=== PATIENT | female | born 1940 | race Caucasian/White ===

== ENCOUNTER 2020-03-06 08:00 | Outpatient (CLI) | payer MEDICARE, OTHER | END 2020-03-06 23:59 | disposition home or self-care (01) | LOC: LAB.R 08:00 | PROVIDERS: ATTEND Family Medicine | DX: Z01.818 Encounter for other preprocedural examination (principal) | CPT/HCPCS: 87640 ==

== ENCOUNTER 2020-04-06 11:03 | Inpatient (IN) | payer MEDICARE, OTHER ==
[2020-04-06] MEDS ORDERED: KETOROLAC 30 MG/ML VIAL IVP STA (11:31)
--- NOTE | 2020-04-06 12:17 | XRAY Report ---
PROCEDURE: Shoulder 3 View RT INDICATIONS: fall posterior shoulder pain TECHNIQUE: 3 views of the shoulder were acquired. COMPARISON: None. 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 Defo rmity involving mid scapular body is seen suggestive of a comminuted scapular body fracture. No suspi cious bony lesions. Visualized ribs appear intact. Soft tissues: No suspicious soft tissue calcifications. IMPRESSION: Comminuted mid scapular body fracture with dorsal and lateral angulation and displacemen t at fracture site. Reviewed by: Ede Cabello MD on 04/06/2020 11:16 AM ALIDA Approved by: Ede Cabello MD on 04/06/2020 11:16 AM ALIDA Station ID: [id number]
--- NOTE | 2020-04-06 12:22 | XRAY Report ---
PROCEDURE: Ribs w/PA Chest LT INDICATIONS: fall left rib pain laterally TECHNIQUE: 2 views of the left ribs were acquired, along with a single view chest. COMPARISON: None FINDINGS: Surgical changes and devices: Prior left shoulder arthroplasty is seen. Bones and chest wall: There is subtle cortical irregularity involving left posterior 10th rib concern ing for minimally displaced rib fracture. No suspicious bony lesions. Overlying soft tissues appear unremarkable. Lungs and pleura: No significant pleural effusions or pneumothorax. Left basilar atelectasis is seen concerning for contusion. Mediastinum: Mediastinal contours appear normal. Heart size is normal. IMPRESSION: 1. Suggestion of minimally displaced left posterior 10th rib fracture. 2. Left basilar atelectasis/contusion. No significant pleural effusion or pneumothorax. Reviewed by: Ede Cabello MD on 04/06/2020 11:20 AM ALIDA Approved by: Ede Cabello MD on 04/06/2020 11:20 AM ALIDA Station ID: [id number]
[2020-04-06] MEDS ORDERED: IOVERSOL 320 100 ML VIAL IVP ONE ×2 (12:57→18:56)
[2020-04-06 13:29] LABS: BASOPHILS # (AUTO) 0.1 10^3/uL (0.0-0.1); BASOPHILS % (AUTO) 0.5 %; EOSINOPHILS % (AUTO) 0.2 %; HGB - HEMOGLOBIN 11.3 g/dL (12.0-16.0); LYMPHOCYTES # (AUTO) 1.3 10^3/uL (1.5-3.5); LYMPHOCYTES % (AUTO) 6.8 %; MEAN CORPUSCULAR HEMOGLOBIN 30.4 pg (27.0-31.0); MEAN CORPUSCULAR HGB CONC 33.7 g/dL (32.0-36.0); MEAN CORPUSCULAR VOLUME 90.1 fL (81.0-99.0); MEAN PLATELET VOLUME 7.9 fL (7.9-10.8); MONOCYTES # (AUTO) 1.4 10^3/uL (0.0-1.0); MONOCYTES % (AUTO) 7.4 %; NEUTROPHILS # (AUTO) 15.8 10^3/uL (1.5-6.6); NEUTROPHILS % (AUTO) 84.2 %; PLT - PLATELET COUNT 357 10^3/uL (130-450); RED BLOOD COUNT 3.72 10^6/uL (4.20-5.40); RED CELL DISTRIBUTION WIDTH 14.5 % (12.0-15.0); WHITE BLOOD COUNT 18.7 x10^3/uL (4.8-10.8)
[2020-04-06 13:44] LABS: ALBUMIN 3.7 g/dL (3.2-5.5); ALBUMIN/GLOBULIN RATIO 1.2 (1.0-2.2); BILIRUBIN,TOTAL 0.2 mg/dL (0.2-1.0); CALCIUM 9.8 mg/dL (8.5-10.3); CREATININE 0.8 mg/dL (0.4-1.0); TOTAL PROTEIN 6.8 g/dL (6.7-8.2)
--- NOTE | 2020-04-06 15:11 | ED Physician Documentation ---
PD HPI Fall - Stated complaint Stated Complaint: FALL DOWN STAIRS - Chief complaint Chief Complaint: Ext Problem - History obtained from History obtained from: Patient, Family - History of Present Illness Mechanism of injury: Tripped Fall distance: Standing position Where injury occurred: Home Timing - onset: Today Injury(ies) location: Chest, Right Upper Extremity Quality of pain: Pain, Throbbing Associated symptoms: Dyspnea, Other ("knocked the wind out"). No: LOC, AMS, Amnesia Symptoms improve with: Rest Worsens with: Movement, Palpation Contributing factors: No: Anticoagulated Similar symptoms before: Has not had sx before Recently seen: Surgery - Additional information Additional information: 80-year-old female has had a left shoulder replacement done 2 weeks ago. Today she was out in her garden feeling much improved and walking she walked down a set of steps in her yard and fell forward and rolled into a wall. She knocked the wind out of herself and has significant pain in her right shoulder. She has some pain in her left chest as well. She denies any loss of consciousness with the fall she denies any pain in her neck or back. She states she did not injure her left shoulder which was recently operated on. Review of Systems Constitutional: denies: Fever Eyes: denies: Decreased vision Ears: denies: Ear pain Nose: denies: Congestion Throat: denies: Sore throat Cardiac: reports: Chest pain / pressure. denies: Palpitations, Pedal edema, Calf pain Respiratory: reports: Dyspnea. denies: Cough GI: denies: Abdominal Pain, Nausea, Vomiting, Constipation, Diarrhea : denies: Dysuria, Frequency Skin: denies: Rash Musculoskeletal: reports: Extremity pain, Joint pain. denies: Neck pain, Back pain Neurologic: denies: Generalized weakness, Focal weakness, Numbness PD PAST MEDICAL HISTORY - Allergies Allergies/Adverse Reactions: Allergies Allergy/AdvReac Type Severity Reaction Status Date / Time No Known Drug Allergies Allergy Verified 04/06/20 11:14 - Social History Does the pt smoke?: No Smoking Status: Never smoker Does the pt drink ETOH?: No Does the pt have substance abuse?: No - Immunizations Immunizations are current?: Yes PD ED PE NORMAL - Vitals Vital signs reviewed: Yes (hypertensive ) - General General: Alert and oriented X 3, Well developed/nourished, Other (The patient appears pale and appears to be 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 On the right side posteriorly there is a fracture deformity to the right scapula w tenderness and protrusion of tip of the body laterally and posteriorly. She is able to move the shoulder in ROM ) - Abdomen Abdomen: Normal bowel sounds, Soft, Non tender, Non distended, No organomegaly - Back Back: No CVA TTP, No spinal TTP - Derm Derm: Normal color, Warm and dry, No rash - Extremities Extremities: Other (There is deformity to the right scapula it is presenting off of the body. There is point tenderness specifically to the area I am not pressing hard enough to cause crepitance. The distal neurovascular components to the right upper extremities are intact she is able to move the shoulder and some ra) - Neuro Neuro: Alert and oriented X 3, crew team member 2-12 intact, No motor deficit, No sensory deficit, Normal speech Eye Opening: Spontaneous Motor: Obeys Commands Verbal: Oriented GCS Score: 15 - Psych Psych: Normal mood Results - Vitals Vitals: Vital Signs - 24 hr 04/06/20 04/06/20 04/06/20 11:15 13:18 15:18 Temperature 36.7 C Heart Rate 72 84 86 Respiratory 16 Rate Blood Pressure 185/74 H 152/79 H 177/59 H O2 Saturation 100 99 99 04/06/20 17:06 Temperature Heart Rate 90 Respiratory 20 Rate Blood Pressure 166/89 H O2 Saturation 99 Oxygen O2 Source Room air - Labs Labs: Laboratory Tests 04/06/20 04/06/20 13:25 13:25 WBC 18.7 H RBC 3.72 L Hgb 11.3 L Hct 33.5 L MCV 90.1 MCH 30.4 MCHC 33.7 RDW 14.5 Plt Count 357 MPV 7.9 Neut # (Auto) 15.8 H Lymph # (Auto) 1.3 L [place] # (Auto) 1.4 H Eos # (Auto) 0.0 Baso # (Auto) 0.1 Absolute Nucleated RBC 0.00 Nucleated RBC % 0.0 Sodium 129 L Potassium 4.2 Chloride 90 L Carbon Dioxide 28 Anion Gap 11.0 BUN 12 Creatinine 0.8 Estimated GFR (MDRD) 69 L Glucose 109 H Calcium 9.8 Total Bilirubin 0.2 AST 43 H ALT 19 Alkaline Phosphatase 65 Total Protein 6.8 Albumin 3.7 Globulin 3.1 Albumin/Globulin Ratio 1.2 Lipase 43 - Rads (name of study) shoulder Radiology: Prelim report reviewed (Impression: Comminuted mid scapular body fracture with dorsal and lateral angulation and displacement at fracture site.), EMP read indepedently, See rad report Ribs with PA chest Radiology: Prelim report reviewed (Impression: 1. Suggestion of minimally displaced left posterior 10th rib fracture. Left basilar atelectasis/contusion. No significant pleural effusion or pneumothorax.), EMP read indepedently, See rad report CT chest with Radiology: Prelim report reviewed (Impression: 1. Minimally displaced left lateral 10th and 11th rib fractures, without evidence of subcutaneous emphysema or left-sided pneumothorax. Pulmonary contusion at the left lung base, however, does appear present with a small associated left pleural effusion. Hemothorax is not seen.), Final report received (3. Significant traumatic injury to the right clavicle has occurred were a moderately comminuted set the fracture planes involve much of the scapular body extending inferior to the scapular tip. There is a rotated bone fragment below the junction of the middle and inferior thirds of the scapular fr), EMP read indepedently (Below the junction of the middle and inferior thirds of the scapular fracture fractures in the interspace between the inferior scapula and the outer margin of the chest wall. Best seen on CT series 3, image 7 rotated approximately 90 degrees from anatomic alignment.), EMP read contemporaneously (2. No sign of mediastinal vascular injury. No evidence of active extravasation of contrast during the course of the study. No spine fracture found.) scapula R Radiology: Prelim report reviewed (: Comminuted fracture of the right scapular spine and body, as above.), EMP read indepedently, See rad report PD MEDICAL DECISION MAKING - ED course Complexity details: reviewed old records, reviewed results, re-evaluated patient, considered differential, d/w patient, d/w family ED course: 80-year-old female with a ground-level fall at her home is knocked the wind out of her self she is has 2 cracked ribs on the left side and a pulmonary contusion as well as a fractured right scapula. She has good pain control with use of Toradol administered intravenously. She has deformity associated with the significant angulated comminuted right scapular fracture. We did discuss hospitalization for pain control the patient felt she may be able to make it at home but after a prolonged discussion was advised she stay.The case was reviewed with Dr. Gaspar's who graciously agrees to care for the patient in the hospital. Her scapular fracture was reviewed with her shoulder surgeon Dr. Segundo Coley at [facility] [phone]. He has recommended conservative treatment, a CT of the scapula and follow up with him in 3 days. Departure - Departure Disposition: [facility] DC/Xfer Clinical Impression: Multiple rib fractures Qualifiers: Encounter type: initial encounter Fracture type: closed Laterality: left Qualified Code(s): S22.42XA - Multiple fractures of ribs, left side, initial encounter for closed fracture Left pulmonary contusion Qualifiers: Encounter type: initial encounter Qualified Code(s): S27.321A - Contusion of lung, unilateral, initial encounter Closed right scapular fracture Qualifiers: Encounter type: initial encounter Scapula location: body Fracture alignment: displaced Qualified Code(s): S42.111A - Displaced fracture of body of scapula, right shoulder, initial encounter for closed fracture Condition: Serious
--- NOTE | 2020-04-06 15:14 | CT Report ---
PROCEDURE: CHEST W INDICATIONS: chest trauma CONTRAST: IV CONTRAST: Optiray 320 ml: 100 PO CONTRAST: *NO PO CONTRAST TECHNIQUE: After the administration of intravenous contrast, 5 mm thick sections acquired from the pulmonary api dom to the posterior costophrenic angles. 7 mm thick coronal MIP reformats were acquired. For radia tion dose reduction, the following was used: automated exposure control, adjustment of mA and/or kV according to patient size. COMPARISON: Prior chest plain film study from same day reviewed. This includes rib plain films targe latosha to the left lower ribs.. FINDINGS: Image quality: Excellent. Lungs and pleura: No acute air space opacities found on the right but there is what appears to be a pulmonary contusion with a small pleural effusion on the left, associated with targeted imaging for r ib fractures obtained earlier same day. There are nondisplaced lateral 10th and 11th rib fractures wi thout subcutaneous emphysema or left-sided pneumothorax in this patient, and more superiorly no rib f ractures are seen. A prior left humeral head arthroplasty has been performed. Central and peripheral airways are patent and normal in caliber. Mediastinum: Heart size is normal. No pericardial effusion. No mediastinal or hilar adenopathy by size criteria. Thoracic aorta and central pulmonary arteries are normal in size. Esophagus is neil l in caliber. No hiatal hernia. Bones and chest wall: No suspicious bony lesions that would suggest presence of infection or neoplas m. No vertebral body compression fractures. The left lateral 10th and 11th rib rotating a inferior scapular body fragment towards the outer rib margins. There is swelling within the subscapular muscle and body wall, but no evidence of active extravasation of contrast during imaging through this area. No axillary or supraclavicular adenopathy by size criteria. Thyroid gland appears normal where well visualized.. Abdomen: Visualized upper abdominal solid organs appear normal. Upper abdominal bowel loops are nor mal in caliber. IMPRESSION: 1. Minimally displaced left lateral 10th and 11th rib fractures, without evidence of subcutaneous emp hysema or left-sided pneumothorax. Pulmonary contusion at the left lung base, however, does appear pr esent with a small associated left pleural effusion. Hemothorax is not seen. 2. No sign of mediastinal vascular injury. No evidence of active extravasation of contrast during the course of this study. No spine fracture found. 3. Significant traumatic injury to the right clavicle has occurred where a moderately comminuted set of fracture planes involve much of the scapular body extending inferior to the scapular tip. There is a rotated bone fragment below the junction of the middle and inferior thirds of the scapular fractur es in the interspace between the inferior scapula and the outer margin of the chest wall. This is bes t seen on CT series 3, image 7, rotated approximately 90 degrees from anatomic alignment. Reviewed by: Baljit Brantley MD on 04/06/2020 3:13 PM PDT Approved by: Baljit Brantley MD on 04/06/2020 3:13 PM PDT Station ID: [id number]
--- NOTE | 2020-04-06 16:13 | CT Report ---
PROCEDURE: UPPER EXTREMITY WO - RT INDICATIONS: right scapular fracture TECHNIQUE: Noncontrast 3 mm axial sections acquired of the right scapula, with coronal and sagittal reformats. COMPARISON: Shoulder x-ray and CT chest 04/06/2020. FINDINGS: Image quality: Excellent. Bones: There is a comminuted fracture with mild displacement of fracture fragments within multiple p ortions of the scapular spine and body. Lateral portions, including the glenohumeral joint as well as the coracoid and acromion are intact. Soft tissues: Minimal appearance of hematomas noted at fracture site. IMPRESSION: Comminuted fracture of the right scapular spine and body, as above. Reviewed by: Yulissa Barbour MD on 04/06/2020 4:12 PM PDT Approved by: Yulissa Barbour MD on 04/06/2020 4:12 PM PDT Station ID: [id number]
--- NOTE | 2020-04-06 17:47 | SURGERY HX AND PHYSICAL(T) ---
Surgical History & Physical - Chief Complaint/HPI Chief Complaint: Fall with rib fractures and scapular fracture History of Present Illness: 80-year-old female status post fall with no loss of consciousness who is most notable for had a left shoulder replacement 2 weeks ago. She reportedly was out in her garden feeling much improved and while walking down a set of steps in her yard and fell forward and rolled into a wall. Again she denies loss of consciousness but does report that the fall "knocked the wind out of herself" and has since developed significant pain in her right shoulder. She has some pain in her left chest as well. She did not hit her head. Moreover, she denies having injured her left shoulder, which was recently operated on. - PMH/PSH/Social Hx Smoking Status: Never smoker Does the pt drink ETOH?: No Does the pt have substance abuse?: No - Home Meds and Allergies Allergies/Adverse Reactions: Allergies Allergy/AdvReac Type Severity Reaction Status Date / Time No Known Drug Allergies Allergy Verified 04/06/20 11:14 - Review of Systems Constitutional: Weakness. No: Fever, Chills, Malaise HEENT: No: Headaches, Visual changes, Eye pain, Dysphasia, Sore throat Skin: No: Cyanosis, Jaundice Cardiac: No: AFIB, MA, Syncope Respiratory: No: Shortness of breath, Cough Gastrointestinal: No: Nausea, Vomiting, Difficulty swallowing, Abdominal pain Gentinourinary: No: Dysuria Neurological: No: Dizziness, Headache, Numbness, Syncope, Tingling, Weakness Musculoskeletal: No: Muscle pain - Vital Signs Heart Rate: 90 Blood Pressure: 166/89 Temperature: 36.7 C Respiratory Rate: 20 O2 Saturation: 99 Weight (kg): 69.4 kg Height: 1.7 m - Physical Exam General Appearance: positive: No acute distress Eyes Bilatera: positive: Normal inspection, PERRL, EOMI, Conjunctivae nml ENT: positive: ENT inspection nml, Pharynx nml Neck: positive: Nml inspection, Thyroid nml, No JVD, Trachea midline, Other (Cervical spine with no tenderness midline either on left and right lateral rotation or by flexion and extension.) Respiratory: positive: Breath sounds nml, Other (Left chest tender to palpation at expected site of rib fractures. Right posterior chest tenderness at the scapular fracture.). negative: Wheezes, Rales, Rhonchi Cardiovascular: positive: Regular rate & rhythm. negative: Tachycardia, Bradycardia Abdomen: positive: Non-tender, No distention. negative: Tenderness, Guarding, Rebound Skin: positive: Color nml, No rash, Warm, Dry. negative: Cyanosis Extremities: positive: Non-tender, Nml appearance, Other (Well-healed left shoulder scar status post recent operative intervention.) Neurologic/Psychiatric: positive: Oriented x3, CN's nml (2-12), Motor nml, Sensation nml, Mood/affect nml - Patient Review Patient Review: Problems were reviewed with the patient during this visit. Medications were reviewed with the patient during this visit. Allergies were reviewed this patient during this visit. Pertinent Tests Reviewed: All pertitent test for this patient were reviewed. - Assessment & Plan Assessment and Plan: 80-year-old female status post left upper extremity/shoulder operative intervention 2 weeks prior who is status post fall with multiple injuries; fall from standing, no loss of consciousness, no headache, no syncope or presyncope, no other sensorimotor deficits, no C-spine tenderness. Injuries include right scapular fracture as well as left rib fractures. Secondary to the scapula trauma, which historically commands significant force, full appropriate trauma work-up was undertaken to include CT of the chest as well as plain films together with left upper extremity CT scan as well. Patient is without pneumothorax, without hemothorax, mild pulmonary contusion noted. No injury noted to left upper extremity or right upper extremity. Given rib fractures, and significant scapular trauma, together with pain and concern for splinting and associated atelectasis with potential for development of pneumonia, patient is admitted for pain management, chest PT and nebs, and monitoring. Orthopedic consult to be called as well. Plan going forward is as follows: 1. Neurology: With regard to the patient's mechanism and reported symptoms no evidence of any intracranial injury or need for further work-up. Patient with no syncope or presyncope. We will continue with opiate sparing analgesia to include Toradol, IV acetaminophen, narcotics as necessary, as well as adjuncts to include Lyrica and muscle relaxants with antispasmodic/Robaxin. Patient to continue home medications to include Wellbutrin and Depakote. 2. Cardiovascular: No issues, troponin and EKG with no concerning features. 3. Endocrine: Continue Synthroid as historic. No evidence for any necessary sliding scale coverage. 4. Infectious disease: No open wounds or fractures and no indication for antibiotics at this time. 5. Respiratory: Obviously the patient's most concerning system in the setting of rib fractures historic left upper extremity surgery and extensive comminuted right scapular fracture. Continue with pain management, nebulized medications, chest physical therapy amongst others. Repeat chest x-ray in the a.m. as well as supplemental oxygen. 6. GI/nutrition: We will advance diet as tolerated and Hep-Lock IV fluids. GI regimen also recommended for bowel movement. 7. Physical therapy will be ordered and pending evaluation and input from orthopedics when seen by patient. 8. We will need to see patients outpatient orthopedic surgeon Dr. Fitzpatrick, who per emergency staff was made aware of the patient's injury.
[2020-04-06] MEDS ORDERED: ONDANSETRON 4 MG/2 ML VIAL IVP PRN (17:49)
[2020-04-06] MEDS ORDERED: HYDROmorphone 0.5 MG/0.5 ML SYRINGE IVP PRN (17:49)
[2020-04-06] MEDS ORDERED: METOCLOPRAMIDE 10 MG/2 ML VIAL IVP PRN (17:49)
[2020-04-06] MEDS ORDERED: SODIUM CHLORIDE FLUSH 0.9% 10 ML SYRINGE IVP PRN (17:49)
[2020-04-06] MEDS ORDERED: ALBUTEROL NEB 2.5 MG/3 ML INH PRN (17:49)
[2020-04-06] MEDS ORDERED: D5NS W/20 MEQ KCL 1,000 ML IV SCH (18:00)
[2020-04-06] MEDS ORDERED: methocarbamoL 500 MG TABLET PO SCH (18:00)
[2020-04-06] MEDS ORDERED: ACETAMINOPHEN 1,000 MG/100 ML 100 ML IV PRN (19:00)
[2020-04-06 20:19] LABS: BILIRUBIN,URINE NEGATIVE (NEGATIVE); GLUCOSE, URINE (UA) NEGATIVE (NEGATIVE); KETONES,URINE (UA) TRACE mg/dL (NEGATIVE); LEUKOCYTE ESTERASE, URINE NEGATIVE (NEGATIVE); NITRITE,URINE NEGATIVE (NEGATIVE); OCCULT BLOOD,URINE NEGATIVE (NEGATIVE); PROTEIN,URINE NEGATIVE (NEGATIVE); UROBILINOGEN,URINE 0.2 (NORMAL) E.U./dL (NORMAL)
[2020-04-06 20:28] LABS: CLARITY,URINE CLEAR (CLEAR)
[2020-04-06] MEDS: D5NS W/20 MEQ KCL 1,000 ML IV SCH (20:44)
[2020-04-06] MEDS: SODIUM CHLORIDE FLUSH 0.9% 10 ML SYRINGE IVP PRN (20:45)
[2020-04-06] MEDS: IPRATROPIUM 0.2 MG/ML NEB INH SCH (22:13)
[2020-04-06] MEDS: HEPARIN 5,000 UNIT/ML VIAL SUBQ SCH (22:45)
[2020-04-06] MEDS: DIVALPROEX DR 250 MG TABLET PO SCH (23:02)
[2020-04-06] MEDS: buPROPion SR 100 MG TABLET PO SCH (23:02)
[2020-04-07] MEDS: SODIUM CHLORIDE FLUSH 0.9% 10 ML SYRINGE IVP SCH ×6 (00:09→17:09)
[2020-04-07] MEDS: methocarbamoL 500 MG TABLET PO SCH ×4 (03:07→21:29)
[2020-04-07] MEDS: D5NS W/20 MEQ KCL 1,000 ML IV SCH ×2 (06:35→16:21)
[2020-04-07] MEDS: LEVOTHYROXINE 100 MCG TABLET PO SCH (06:36)
[2020-04-07] MEDS: PANTOPRAZOLE 40 MG VIAL IVP SCH (06:36)
[2020-04-07] MEDS: IPRATROPIUM 0.2 MG/ML NEB INH SCH ×4 (07:48→23:27)
[2020-04-07] MEDS ORDERED: DIVALPROEX DR 250 MG TABLET PO SCH (09:00)
[2020-04-07] MEDS ORDERED: buPROPion SR 100 MG TABLET PO SCH ×2 (09:00)
[2020-04-07] MEDS: buPROPion SR 100 MG TABLET PO SCH ×2 (09:46→21:32)
[2020-04-07] MEDS: DIVALPROEX DR 250 MG TABLET PO SCH ×2 (09:46→21:32)
[2020-04-07] MEDS: HEPARIN 5,000 UNIT/ML VIAL SUBQ SCH ×2 (09:52→21:31)
--- NOTE | 2020-04-07 12:23 | XRAY Report ---
PROCEDURE: Chest 1 View X-Ray INDICATIONS: Rib fx follow up, eval for pneumo TECHNIQUE: One view of the chest was acquired. COMPARISON: Chest CT and chest radiograph 04/06/2020. Correlation is also made with right shoulder CT examination 04/06/2020. FINDINGS: Surgical changes and devices: Left shoulder arthroplasty hardware is seen. Lungs and pleura: No pleural effusions or pneumothorax. No focal infiltrates are seen. Minimal in terstitial prominence is seen. Mediastinum: The aorta is prominent and tortuous. The cardiac contours are within normal limits. Bones and chest wall: No suspicious bony lesions. The known left-sided rib fractures are not seen on this study. The known right scapular fracture is poorly seen on this study. Overlying soft tissues a ppear unremarkable. IMPRESSION: No pneumothorax is seen. The known left-sided rib fractures are not seen on this study. The known right-sided scapular fracture is poorly seen on this plain film study. Reviewed by: Santana Merida MD on 04/07/2020 11:22 AM AL[facility] Approved by: Santana Merida MD on 04/07/2020 11:22 AM ALIDA Station ID: [id number]
[2020-04-07] MEDS ORDERED: oxyCODONE 5 MG TABLET PO PRN (13:20)
[2020-04-07] MEDS: KETOROLAC 30 MG/ML VIAL IVP SCH ×2 (15:47→18:52)
[2020-04-07] MEDS ORDERED: methocarbamoL 500 MG TABLET PO SCH (18:00)
[2020-04-07] MEDS: ACETAMINOPHEN 1,000 MG/100 ML 100 ML IV SCH (18:34)
[2020-04-07] MEDS: PREGABALIN 100 MG CAPSULE PO SCH ×2 (21:35→22:24)
--- NOTE | 2020-04-07 21:35 | PROVIDER PROGRESS NOTE ---
Progress Note SUBJECTIVE: 80-year-old female status post fall with no loss of consciousness who is most notable for had a left shoulder replacement 2 weeks ago. She reportedly was out in her garden feeling much improved and while walking down a set of steps in her yard and fell forward and rolled into a wall. Again she denies loss of consciousness but does report that the fall "knocked the wind out of herself" and has since developed significant pain in her right shoulder. She has some pain in her left chest as well. She did not hit her head. Moreover, she denies having injured her left shoulder, which was recently operated on. ADMITTING DX: 1. Recent left shoulder orthopedic surgery - UNCHANGED 2. Status post fall - UNCHANGED 3. Status post left rib fractures - UNCHANGED 4. Status post comminuted right scapular fracture - UNCHANGED 5. Right clavicular fracture - UNCHANGED 6. Chest pain and dyspnea - RESOLVED 7. Multiple comorbid states including hypothyroidism amongst others - UNCHANGED Feels overall much better today/this evening within 24 hours of admission. No acute complaints. Pain management appropriate. Patient very pleased with hospital care as was her and thankful for the intensity of the follow- up. OBJECTIVE: Patient afebrile hemodynamically acceptable LCTAB, NO W/R/R ABD SOFT, ND, NO R/G MOVING ALL EXTREMITIES, NO SENOSORIMOTOR DEFICITS AAOX3 ASSESSMENT & PLAN: 80-year-old female status post fall with no loss of consciousness who is most notable for had a left shoulder replacement 2 weeks ago. She reportedly was out in her garden feeling much improved and while walking down a set of steps in her yard and fell forward and rolled into a wall. Again she denies loss of consciousness but does report that the fall "knocked the wind out of herself" and has since developed significant pain in her right shoulder. She has some pain in her left chest as well. She did not hit her head. Moreover, she denies having injured her left shoulder, which was recently operated on. Injuries include right scapular fracture as well as left rib fractures. Secondary to the scapula trauma, which historically commands significant force, full appropriate trauma work-up was undertaken to include CT of the chest as well as plain films together with left upper extremity CT scan as well. Patient is without pneumothorax, without hemothorax, mild pulmonary contusion noted. No injury noted to left upper extremity or right upper extremity. 1. Specific injuries are include minimally displaced left lateral 10th and 11th rib fractures, no pneumothorax no hemothorax however evident pulmonary contusion 2. Significant traumatic injury to the right clavicle a moderate comminuted right scapular body fracture with no hematoma. Given rib fractures, and significant scapular trauma, together with pain and concern for splinting and associated atelectasis with potential for development of pneumonia, patient was admitted for pain management, chest PT and nebs, and monitoring. Orthopedic consult to be called as well. PLAN as follows: 1. Neurology: With regard to the patient's mechanism and reported symptoms no evidence of any intracranial injury or need for further work-up. Patient with no syncope or presyncope. We continued with opiate sparing analgesia to include Toradol, IV acetaminophen, narcotics as necessary, as well as adjuncts to include Lyrica and muscle relaxants with antispasmodic/Robaxin. Patient to continue home medications to include Wellbutrin and Depakote. Discharged on narcotics and antispasmodics. 2. Cardiovascular: No issues, troponin and EKG with no concerning features. HD acceptable. Maintained on chemical DVT ppx. 3. Endocrine: Continued Synthroid as historic. No evidence for any necessary sliding scale coverage. 4. Infectious disease: No open wounds or fractures and no indication for antibiotics at this time. 5. Respiratory: Obviously the patient's most concerning system in the setting of rib fractures historic left upper extremity surgery and extensive comminuted right scapular fracture. Continued with pain management, nebulized medications, chest physical therapy amongst others. Repeat chest x-ray in the a.m. as well as supplemental oxygen - repeat imaging with no concern for delayed pneumothorax or hemothorax. 6. GI/nutrition: We will advance diet as tolerated and Hep-Lock IV fluids. GI regimen also recommended for bowel movement. 7. Physical therapy input from orthopedics see below. 8. We will need to see patients outpatient orthopedic surgeon Dr. Fitzpatrick, who per emergency staff was made aware of the patient's injury. Discussed case with Dr. Le on-call orthopedic surgeon (SEE EARLIER ADDENDUM) Several issues were addressed and are listed as follows: 1. With regard to the patient's historic orthopedic procedure, patient to continue with previous instructions to the left upper extremity as before. Continue with left arm sling. Patient also to use arm as necessary with historic weightbearing restrictions. Patient follows up with Dr. Fitzpatrick next week. No concerns for any injury to this extremity secondary to the patient's fall. 2. With regard to the patient's scapular fracture, no specific orthopedic intervention merited. Continue with right upper extremity weightbearing as tolerated. Will order physical therapy to address the patient's comfort with a possible sling. 3. No other concerns shared on discussion with Dr. Le who reviewed the images/reports and the patient. TO BE Seen by PT as well with specific recommendations made to the patient.
[2020-04-08] MEDS: ACETAMINOPHEN 1,000 MG/100 ML 100 ML IV SCH ×3 (00:54→13:10)
[2020-04-08] MEDS: SODIUM CHLORIDE FLUSH 0.9% 10 ML SYRINGE IVP SCH ×5 (00:55→14:49)
[2020-04-08] MEDS: KETOROLAC 30 MG/ML VIAL IVP SCH ×4 (00:55→17:40)
[2020-04-08] MEDS: D5NS W/20 MEQ KCL 1,000 ML IV SCH ×2 (02:37→12:40)
[2020-04-08] MEDS: methocarbamoL 500 MG TABLET PO SCH ×3 (04:45→16:14)
[2020-04-08] MEDS: PANTOPRAZOLE 40 MG VIAL IVP SCH (06:14)
[2020-04-08] MEDS: LEVOTHYROXINE 100 MCG TABLET PO SCH (06:14)
[2020-04-08] MEDS: SODIUM CHLORIDE FLUSH 0.9% 10 ML SYRINGE IVP PRN (06:15)
--- NOTE | 2020-04-08 08:27 | PHARMACY PROGRESS NOTE ---
- Best Possible Medication History Admit Date and Time: 04/06/20 180 Processed by: Pharmacy Medication History completed: Yes Patient Interview: Completed Secondary Source(s): Pharmacy records, Insurance records (PATIENT INTERVIEWED BY PHARMACY. PATIENT ABLE TO CONFIRM HOME MEDICATIONS ) As the person ultimately responsible for medication therapy, providers are able to order a medication from an existing home medication list in [facility] via the "Reconcile Routine" prior to Confirmation of that medication by wind farm support specialist. Such practice is discouraged except when the physician, in their clinical judgment, deems that a medical need exists for a medication without regard to previous use.
[2020-04-08] MEDS: DIVALPROEX DR 250 MG TABLET PO SCH (09:22)
[2020-04-08] MEDS: PREGABALIN 100 MG CAPSULE PO SCH (09:23)
[2020-04-08] MEDS: buPROPion SR 100 MG TABLET PO SCH (09:23)
[2020-04-08] MEDS: HEPARIN 5,000 UNIT/ML VIAL SUBQ SCH (09:27)
[2020-04-08] MEDS: IPRATROPIUM 0.2 MG/ML NEB INH SCH ×2 (10:03→10:04)
[2020-04-08] MEDS ORDERED: IPRATROPIUM 0.2 MG/ML NEB INH SCH (15:06)
[2020-04-08] MEDS ORDERED: IPRATROPIUM 0.2 MG/ML NEB INH PRN (15:08)
[2020-04-08 16:15] VITALS: BP 132/45
--- NOTE | 2020-04-08 16:46 | Discharge Plan ---
Discharge Plan Problem Reviewed?: Yes Disposition: 06 Home Health Service Condition: Good Prescriptions: oxyCODONE [Roxicodone] 5 mg PO Q4HR PRN #30 tablet PRN Reason: Pain Gabapentin 100 mg PO TID #90 capsule methocarbamoL [Robaxin] 500 mg PO Q6H PRN #30 tablet PRN Reason: Spasms Acetaminophen [Tylenol] 650 mg PO Q6H PRN #30 tab PRN Reason: Pain Diet: Soft Activity Restrictions: Wt Bearing as Tolerated Shower Restrictions: No Driving Restrictions: Yes Assistance Devices: Sling (Bilateral upper extremity slings) Instruction Topics: ED Contusion Vs Minor Fx Rib, Falls Risks Prevent, Breathing Deep Postsurgical, SCI Healthy Breathing Plan of Treatment: DISCHARGE INSTRUCTIONS TEMPLATE: No heavy lifting, pushing, or pulling. Stairs are allowed, no strenuous/exertional activities. 5-10lbs weight carrying limit (i.e. gallon of milk) If provided, abdominal binder while out of bed and while ambulating. Call or proceed to clinic/ER for fevers, severe pain, nausea, vomiting, inability to pass flatus/stool, bleeding, wound redness/discharge, weakness, excessively loose stool/diarrhea, or for any other reasonably worrisome symptom or concern. Soft diet, no raw vegetables, avoid high fiber foods. Colace 100mg by mouth twice to three times daily while taking narcotic pain medication. If no bowel movement in 24-48hr, may take 17g Miralax in 8oz water twice daily until bowel movement. May shower, no submersive bathing. Follow up in clinic in 2-4 weeks for wound check and staple removal. No driving while taking narcotic pain medications. Follow up with primary care provider and/or medical subspecialist following discharge as well. Call for shortness of breath, chest pain, or other concerning features. Continue incentive spirometry with deep inspiration 10 times per hour. We will need to follow-up with patient's orthopedic surgeon. We will have to follow-up with primary care as well. Continue with home physical therapy. Assessment: DISCHARGE INSTRUCTIONS TEMPLATE: No heavy lifting, pushing, or pulling. Stairs are allowed, no strenuous/exertional activities. 5-10lbs weight carrying limit (i.e. gallon of milk) If provided, abdominal binder while out of bed and while ambulating. Call or proceed to clinic/ER for fevers, severe pain, nausea, vomiting, inability to pass flatus/stool, bleeding, wound redness/discharge, weakness, excessively loose stool/diarrhea, or for any other reasonably worrisome symptom or concern. Soft diet, no raw vegetables, avoid high fiber foods. Colace 100mg by mouth twice to three times daily while taking narcotic pain medication. If no bowel movement in 24-48hr, may take 17g Miralax in 8oz water twice daily until bowel movement. May shower, no submersive bathing. Follow up in clinic in 2-4 weeks for wound check and staple removal. No driving while taking narcotic pain medications. Follow up with primary care provider and/or medical subspecialist following discharge as well. Call for shortness of breath, chest pain, or other concerning features. Continue incentive spirometry with deep inspiration 10 times per hour. We will need to follow-up with patient's orthopedic surgeon. We will have to follow-up with primary care as well. Follow-Up Care: Outpatient Rehab - PT, Home Health - No Smoking: If you smoke, Please STOP! Call for help. Follow-up with: Thierry Castillo MD [Primary Care Provider] -
--- NOTE | 2020-04-10 01:23 | DISCHARGE SUMMARY ---
Discharge Summary Admit Date: 04/06/20 Discharge Date: 04/08/20 Discharging Provider: Fina Rodriguez Status: Attempt Resuscitation Condition at Discharge: Good Discharge Disposition: 06 Home Health Service - DIAGNOSES Admission Diagnoses: 1. Recent left shoulder orthopedic surgery 2. Status post fall 3. Status post left rib fractures 4. Status post comminuted right scapular fracture 5. Right clavicular fracture 6. Chest pain and dyspnea Discharge Diagnoses with Status of Each Condition: 1. Recent left shoulder orthopedic surgery - UNCHANGED 2. Status post fall - UNCHANGED 3. Status post left rib fractures - UNCHANGED 4. Status post comminuted right scapular fracture - UNCHANGED 5. Right clavicular fracture - UNCHANGED 6. Chest pain and dyspnea - RESOLVED 7. Multiple comorbid states including hypothyroidism amongst others - UNCHANGED - HPI History of Present Illness: Chief Complaint: Fall with rib fractures and scapular fracture History of Present Illness: 80-year-old female status post fall with no loss of consciousness who is most notable for had a left shoulder replacement 2 weeks ago. She reportedly was out in her garden feeling much improved and while walking down a set of steps in her yard and fell forward and rolled into a wall. Again she denies loss of consciousness but does report that the fall "knocked the wind out of herself" and has since developed significant pain in her right shoulder. She has some pain in her left chest as well. She did not hit her head. Moreover, she denies having injured her left shoulder, which was recently operated on. - CONSULTS | PROCEDURES Consultations: ORTHOPEDIC SURGERY; PHYSICAL THERAPY Procedures: NONE - HOSPITAL COURSE Hospital Course: 80-year-old female status post fall with no loss of consciousness who is most notable for had a left shoulder replacement 2 weeks ago. She reportedly was out in her garden feeling much improved and while walking down a set of steps in her yard and fell forward and rolled into a wall. Again she denies loss of consciousness but does report that the fall "knocked the wind out of herself" and has since developed significant pain in her right shoulder. She has some pain in her left chest as well. She did not hit her head. Moreover, she denies having injured her left shoulder, which was recently operated on. Injuries include right scapular fracture as well as left rib fractures. Secondary to the scapula trauma, which historically commands significant force, full appropriate trauma work-up was undertaken to include CT of the chest as well as plain films together with left upper extremity CT scan as well. Patient is without pneumothorax, without hemothorax, mild pulmonary contusion noted. No injury noted to left upper extremity or right upper extremity. 1. Specific injuries are include minimally displaced left lateral 10th and 11th rib fractures, no pneumothorax no hemothorax however evident pulmonary contusion 2. Significant traumatic injury to the right clavicle a moderate comminuted right scapular body fracture with no hematoma. Given rib fractures, and significant scapular trauma, together with pain and concern for splinting and associated atelectasis with potential for development of pneumonia, patient was admitted for pain management, chest PT and nebs, and monitoring. Orthopedic consult to be called as well. Hospital stay organized as follows: 1. Neurology: With regard to the patient's mechanism and reported symptoms no evidence of any intracranial injury or need for further work-up. Patient with no syncope or presyncope. We continued with opiate sparing analgesia to include Toradol, IV acetaminophen, narcotics as necessary, as well as adjuncts to include Lyrica and muscle relaxants with antispasmodic/Robaxin. Patient to cont inue home medications to include Wellbutrin and Depakote. Discharged on narcotics and antispasmodics. 2. Cardiovascular: No issues, troponin and EKG with no concerning features. HD acceptable. Maintained on chemical DVT ppx. 3. Endocrine: Continued Synthroid as historic. No evidence for any necessary sliding scale coverage. 4. Infectious disease: No open wounds or fractures and no indication for antibiotics at this time. 5. Respiratory: Obviously the patient's most concerning system in the setting of rib fractures historic left upper extremity surgery and extensive comminuted right scapular fracture. Continued with pain management, nebulized medications, chest physical therapy amongst others. Repeat chest x-ray in the a.m. as well as supplemental oxygen - repeat imaging with no concern for delayed pneumothorax or hemothorax. 6. GI/nutrition: We will advance diet as tolerated and Hep-Lock IV fluids. GI regimen also recommended for bowel movement. 7. Physical therapy input from orthopedics see below. 8. We will need to see patients outpatient orthopedic surgeon Dr. Fitzpatrick, who per emergency staff was made aware of the patient's injury. Discussed case with Dr. Le on-call orthopedic surgeon. Several issues were addressed and are listed as follows: 1. With regard to the patient's historic orthopedic procedure, patient to continue with previous instructions to the left upper extremity as before. Continue with left arm sling. Patient also to use arm as necessary with historic weightbearing restrictions. Patient follows up with Dr. Fitzpatrick next week. No concerns for any injury to this extremity secondary to the patient's fall. 2. With regard to the patient's scapular fracture, no specific orthopedic intervention merited. Continue with right upper extremity weightbearing as tolerated. Will order physical therapy to address the patient's comfort with a possible sling. 3. No other concerns shared on discussion with Dr. Le who reviewed the i mages/reports and the patient. Seen by PT as well with specific recommendations made to the patient. On day of discharge patient had no dyspnea, no pleuritic chest pain, no evidence of hemo-or pneumothorax on serial x-ray, appropriate pain control, has been ambulatory, tolerating diet, and was appropriate for discharge plan follow-up. - ALLERGIES Allergies/Adverse Reactions: Allergies Allergy/AdvReac Type Severity Reaction Status Date / Time No Known Drug Allergies Allergy Verified 04/06/20 11:14 - MEDICATIONS Home Medications: Ambulatory Orders Medication Instructions Recorded Confirmed Acetaminophen [Tylenol] 650 mg PO Q6H PRN #30 tab 04/08/20 Calcium Carbonate [Calcium] 600 mg PO DAILY 04/08/20 04/08/20 Cholecalciferol (Vitamin D3) 25 mcg PO DAILY 04/08/20 04/08/20 [Vitamin D3] Divalproex [Sharron Dorantes] 500 mg PO BID tablet 04/08/20 Divalproex Sodium 500 mg PO BID 04/08/20 04/08/20 Gabapentin 100 mg PO TID #90 capsule 04/08/20 Levothyroxine Sodium 100 mcg PO DAILY 04/08/20 04/08/20 Levothyroxine [Synthroid] 100 mcg PO QDAC tablet 04/08/20 Magnesium 250 mg PO DAILY 04/08/20 04/08/20 [place]-3/Dha/Epa/Fish Oil [Fish Oil 1 cap PO DAILY 04/08/20 04/08/20 1,000 mg Softgel] Vitamin B Complex 1 cap PO DAILY 04/08/20 04/08/20 buPROPion HCL [Bupropion HCl] 75 mg PO BID 04/08/20 04/08/20 buPROPion [Wellbutrin Sr] 100 mg PO BID tablet 04/08/20 methocarbamoL [Robaxin] 500 mg PO Q6H PRN #30 tablet 04/08/20 oxyCODONE [Roxicodone] 5 mg PO Q4HR PRN #30 tablet 04/08/20 - PHYSICAL EXAM AT DISCHARGE General Appearance: positive: No acute distress Eyes Bilateral: positive: Normal inspection, PERRL, EOMI ENT: positive: ENT inspection nml Neck: positive: Nml inspection Respiratory: positive: No respiratory distress, Breath sounds nml, Other (Right posterior chest wall appropriately tender given traumatic injuries, left chest wall at level of rib fractures improved in the setting of ongoing pain management. No crepitus no other findings.). negative: Wheezes, Rales, Rhonchi Cardiovascular: positive: Regular rate & rhythm Abdomen: positive: Non-tender, No distention. negative: Tenderness, Guarding, Rebound Back: positive: Nml inspection Skin: positive: Color nml Extremities: positive: Non-tender, Full ROM, Other (Right shoulder incision clean dry and intact. No other acute injuries patient wearing bilateral slings at the time of discharge with no concerns for any occult fracture or other injury.) Neurologic/Psychiatric: positive: Oriented x3, CN's nml (2-12), Motor nml - LABS Result Diagrams: 04/06/20 13:25 04/06/20 13:25 - DIAGNOSTIC IMAGING Diagnostic Imaging Results: Final report reviewed - SEPSIS Current Stage of Sepsis: Ruled out - QUALITY (Female Hip Fx Only) Was patient sent home on osteoporosis medication?: No - FOLLOW UP Follow Up: Patient to follow-up with home physical therapy; had outpatient physical therapy following her left shoulder intervention however together with her acute injuries from her recent fall this would be best served at home given limited mobility and increased risk of further traumatic injury with bilateral upper extremity slings. F/U with orthopaedic surgeon, Dr. Fitzpatrick, who performed the patient's left shoulder surgery.
== END 2020-04-08 17:55 | disposition home health service (06) | DRG 565 ==
LOC: EDUNIT# → ED 11:03 → MS2 18:06
PROVIDERS: ADMIT Surgery; ATTEND Surgery
DX: S42.111A Displaced fracture of body of scapula, right shoulder, initial encounter for closed fracture (principal); S22.42XA Multiple fractures of ribs, left side, initial encounter for closed fracture; W10.8XXA Fall (on) (from) other stairs and steps, initial encounter; Y92.017 Garden or yard in single-family (private) house as the place of occurrence of the external cause; E03.9 Hypothyroidism, unspecified; S27.321A Contusion of lung, unilateral, initial encounter; S42.001A Fracture of unspecified part of right clavicle, initial encounter for closed fracture; Z96.612 Presence of left artificial shoulder joint
CPT/HCPCS: 36415; 71045; 71101; 71260; 73030; 73200; 80053; 81003; 83690; 84484; 85025; 93005; 94640; 96374; 97116; 97161; 99285; A9270; J0131; Q9967; 81001; 87086

== ENCOUNTER 2021-03-01 08:00 | Outpatient (CLI) | payer MEDICARE, OTHER ==
[2021-03-01 17:43] LABS: BASOPHILS % (AUTO) 0.6 %; EOSINOPHILS # (AUTO) 0.1 10^3/uL (0.0-0.7); EOSINOPHILS % (AUTO) 1.7 %; HCT - HEMATOCRIT 39.3 % (37.0-47.0); LYMPHOCYTES # (AUTO) 1.8 10^3/uL (1.5-3.5); LYMPHOCYTES % (AUTO) 39.3 %; MEAN CORPUSCULAR HEMOGLOBIN 30.3 pg (27.0-31.0); MEAN CORPUSCULAR HGB CONC 33.1 g/dL (32.0-36.0); MEAN CORPUSCULAR VOLUME 91.6 fL (81.0-99.0); MEAN PLATELET VOLUME 9.6 fL (7.9-10.8); MONOCYTES # (AUTO) 0.6 10^3/uL (0.0-1.0); MONOCYTES % (AUTO) 13.5 %; NEUTROPHILS # (AUTO) 2.1 10^3/uL (1.5-6.6); NEUTROPHILS % (AUTO) 44.7 %; PLT - PLATELET COUNT 268 10^3/uL (130-450); RED BLOOD COUNT 4.29 10^6/uL (4.20-5.40); RED CELL DISTRIBUTION WIDTH 14.5 % (12.0-15.0); WHITE BLOOD COUNT 4.7 x10^3/uL (4.8-10.8)
[2021-03-01 18:01] LABS: ALBUMIN 4.2 g/dL (3.2-5.5); ALBUMIN/GLOBULIN RATIO 1.3 (1.0-2.2); ALKALINE PHOSPHATASE 57 IU/L (42-121); ALT ALANINE AMINOTRANSFERASE 19 IU/L (10-60); AST ASPARTATE AMINOTRANSFERASE 29 IU/L (10-42); BILIRUBIN,TOTAL 0.8 mg/dL (0.2-1.0); BUN - BLOOD UREA NITROGEN 15 mg/dL (6-20); CALCIUM 9.8 mg/dL (8.5-10.3); CARBON DIOXIDE - CO2 30 mmol/L (21-32); CHLORIDE 94 mmol/L (101-111); CHOL/HDL RATIO 2.3 (<4.4); CHOLESTEROL 248 mg/dL; CREATININE 0.9 mg/dL (0.4-1.0); GFR - MDRD 60 (>89); GLUCOSE 82 mg/dL (70-100); HDL CHOLESTEROL 109 mg/dL; LDL CHOLESTEROL,CALCULATED 127 mg/dL; LDL/HDL RATIO 1.2 (<4.4); POTASSIUM 4.1 mmol/L (3.5-5.0); SODIUM 133 mmol/L (135-145); TOTAL PROTEIN 7.4 g/dL (6.7-8.2); TRIGLYCERIDES 59 mg/dL; VALPROIC ACID (DEPAKOTE) 54.6 ug/mL; VLDL CHOLESTEROL 12 mg/dL
== END 2021-03-01 23:59 | disposition home or self-care (01) ==
LOC: LAB.WCP 08:00
PROVIDERS: ATTEND Family Medicine
DX: M12.9 Arthropathy, unspecified (principal); F31.9 Bipolar disorder, unspecified; E03.9 Hypothyroidism, unspecified
CPT/HCPCS: 36415; 80053; 80061; 80164; 83721; 85025

== ENCOUNTER 2021-03-05 19:30 | Outpatient (CLI) | payer MEDICARE, OTHER | END 2021-03-05 19:31 | disposition home or self-care (01) | LOC: COV 19:30 | PROVIDERS: ATTEND Family Medicine | DX: Z01.812 Encounter for preprocedural laboratory examination (principal); Z20.822 Contact with and (suspected) exposure to COVID-19 ==

== ENCOUNTER 2021-04-19 15:27 | Outpatient (CLI) | payer MEDICARE, OTHER ==
--- NOTE | 2021-04-19 16:21 | XRAY Report ---
PROCEDURE: Hand 3 View LT INDICATIONS: CONTUSION OF LEFT HAND TECHNIQUE: 3 views of the hand(s) acquired. COMPARISON: None FINDINGS: Bones: No fractures or dislocations. No suspicious bony lesions. Soft tissues: No suspicious soft tissue calcifications. IMPRESSION: No visualized acute fracture or dislocation. However, occult injury cannot be excluded. Recommend munira rt interval imaging follow-up in 7-10 days as clinically indicated for additional evaluation. Reviewed by: Yulissa Barbour MD on 04/19/2021 4:20 PM PDT Approved by: Yulissa Barbour MD on 04/19/2021 4:20 PM PDT Station ID: [id number]
== END 2021-04-19 23:59 | disposition home or self-care (01) ==
LOC: DI.N 15:27
PROVIDERS: ATTEND Physician Assistant Medical
DX: S60.222A Contusion of left hand, initial encounter (principal)

== ENCOUNTER 2021-09-27 12:48 | Outpatient (CLI) | payer MEDICARE, OTHER ==
--- NOTE | 2021-09-27 15:37 | CT Report ---
PROCEDURE: CHEST WO INDICATIONS: LUNG NODULES TECHNIQUE: Noncontrast 1mm axial images were acquired from the pulmonary apices to the posterior costophrenic an gles. Axial 5 mm soft tissue kernel reconstructions were performed as well as 8 mm axial MIP and cor onal and sagittal 5 mm reformations. For radiation dose reduction, the following was used: automate d exposure control, adjustment of mA and/or kV according to patient size. COMPARISON: CT chest with contrast, 04/06/2020. FINDINGS: Image quality: Excellent. Lungs and pleura: There are small lung nodules. Reference nodules are listed in the following: Nodule 1: 3 mm; right lower lobe, endobronchial; series 4 image 171; new. Nodule 2: 3 mm; right lower lobe, endobronchial; series 4 image 175; new. Nodule 3: 3 mm; right middle lobe; series 4 image 140; new. Nodule 4: 2 mm; right upper lobe; series 4 image 62; stable. Nodule 5: 2 mm; left upper lobe; series 4 image 76; stable. Nodule 6: 3 mm; left lower lobe endobronchial; series 4 image 137; new. No acute air space opacities. No pleural effusions or pneumothorax. Central and peripheral airways are patent and normal in caliber. Mediastinum: Heart size is normal. Trace pericardial effusion. No mediastinal adenopathy by size cr iteria. Thoracic aorta and central pulmonary arteries are normal in size. Esophagus is normal in ca liber. No hiatal hernia. Bones and chest wall: No suspicious bony lesions. No vertebral body compression fractures. Left sh oulder arthroplasty. No axillary or supraclavicular adenopathy by size criteria. The thyroid is norm al in size and there are no incidental findings. Abdomen: Visualized upper abdominal solid organs and bowel loops appear normal in the absence of con trast. IMPRESSION: 1. Multiple new lung nodules bilaterally, including several small intrabronchial nodules. Recommend a short-term follow-up CT in 3 months. ACR lung RADS 4A. Fleischner Society criteria for SOLID lung nodule followup. Nodule size (mm)Low-risk patientHigh-risk patient "d4No follow-up neededFollow-up at 12 mo; if no change, no further follow-up >[id number] CT at 12 mo; if no change, no further follow-up needed.Initial follow-up CT at 6-12 mo, then 18-24 mo if no change. >6-8Initial follow-up CT at 6-12 mo, then 18-24 mo if no change. Initial follow-up CT at 3-6 mo, then 9-12 mo and 24 mo if no change. >8Follow-up CT at 3, 9, 24 mo. Or PET and/or biopsy.Same as for low-risk pts. Reviewed by: Jeffrey Solares MD on 09/27/2021 3:36 PM PST Approved by: Jeffrey Solares MD on 09/27/2021 3:36 PM PST Station ID: [id number]
== END 2021-09-27 12:49 | disposition home or self-care (01) ==
LOC: DI 12:48
PROVIDERS: ATTEND Family Medicine
DX: R91.8 Other nonspecific abnormal finding of lung field (principal)

== ENCOUNTER 2023-04-07 08:00 | Outpatient (CLI) | payer MEDICARE, OTHER | END 2023-04-07 23:59 | disposition home or self-care (01) | LOC: LAB.N 08:00 | PROVIDERS: ATTEND Specialist | DX: U07.1 COVID-19 (principal) ==

== ENCOUNTER 2023-10-27 11:00 | Outpatient (CLI) | payer MEDICARE, OTHER | END 2023-10-27 11:15 | disposition home or self-care (01) | LOC: LAB.N 11:00 | PROVIDERS: ATTEND Specialist | DX: J02.9 Acute pharyngitis, unspecified (principal) | CPT/HCPCS: 87070 ==